=== PATIENT | female | born 1950 | race Caucasian/White ===

== ENCOUNTER 2022-11-04 11:04 | Emergency (ER) | payer MEDICARE, OTHER ==
--- NOTE | 2022-11-04 11:26 | ERPHSYRPT ---
- History of Present Illness Time Seen by Provider: 11/04/22 11:26 Source: patient Exam Limitations: no limitations Physician History: This is a 72-year-old white female patient who is diabetic, has hypertension and hypothyroidism who presents with left hand pain digits 4 and 5, left foot and ankle pain after jumping off the back of a stationary truck while trying to get her coat into the truck bed. Patient was able to ambulate on her feet to get the go to the [employer] worker. The left foot and ankle pain had increased pain and swelling and therefore she wanted to come into obtain an x-ray. When she hit the ground her left foot and ankle rolled and she tried to balance herself to protect her left hip with her left hand and that is how she injured the left hand digits 4 and 5. She has no headache. She has no neck pain. She has no other sites of injury or pain. Occurred: this morning Reason for Fall: fell from height Injuries/Pain Location: upper extremity, lower extremity (Left hand left foot and ankle) Loss of Consciousness: no loss of consciousness Quality: aching Severity of Pain-Max: mild Severity of Pain-Current: mild Modifying Factors: Improves With: movement Associated Symptoms (Fall): denies symptoms Allergies/Adverse Reactions: fentanyl [From Duragesic] Allergy (Verified 11/04/22 11:40) influenza virus vaccine qs [id number] (36 mos, up) [From Fluarix Quad] Allergy (Verified 11/04/22 11:40) Home Medications: Atorvastatin Calcium 10 mg PO DAILY 11/04/22 [History] Ergocalciferol (Vitamin D2) [Vitamin D2] 50,000 unit PO WEEKLY 11/04/22 [History] Levothyroxine Sodium 100 mcg PO DAILY 11/04/22 [History] Lisinopril 20 mg [Zestril 20 MG] 20 mg PO DAILY 11/04/22 [History] Tirzepatide [Mounjaro] 5 mg SQ WEEKLY 11/04/22 [History] Travel Risk - International Travel Have you traveled outside of the country in past 3 weeks: No - Coronavirus Screening Are you exhibiting any of the following symptoms?: No Close contact with a COVID-19 positive Pt in past 14-21 Days: No - Review of Systems Constitutional: No Symptoms Eyes: No Symptoms Ears, Nose, & Throat: No Symptoms Respiratory: No Symptoms Cardiac: No Symptoms Abdominal/Gastrointestinal: No Symptoms Genitourinary Symptoms: No Symptoms Musculoskeletal: Injury (Left hand digits 4 and 5, left foot and ankle) Skin: No Symptoms Neurological: No Symptoms Psychological: No Symptoms Endocrine: No Symptoms Hematologic/Lymphatic: No Symptoms Immunological/Allergic: No Symptoms All Other Systems: Reviewed and Negative - Past Medical History Pertinent Past Medical History: Yes - Past Surgical History Past Surgical History: Yes - Nursing Vital Signs Nursing Vital Signs: Initial Vital Signs Temperature 98.3 F 11/04/22 11:27 Pulse Rate 84 11/04/22 11:27 Blood Pressure 134/89 11/04/22 11:27 O2 Sat by Pulse Oximetry 95 11/04/22 11:27 Pain Scale Pain Intensity 8 - Wolf Coma Score Best Eye Response (Wolcott): (4) open spontaneously Best Verbal Response (Wolf): (5) oriented Best Motor Response (Wolcott): (6) obeys commands [place]cott Total: 15 - Physical Exam General Appearance: no apparent distress, alert, anxiety Head Injury: no evidence of injury Eye Exam: PERRL/EOMI, eyes nml inspection ENT Exam: airway nml, nml ext.inspection, No evidence of ENT injury Neck Exam: supple, trachea midline, full range of motion, normal alignment, normal inspection Respiratory/Chest Exam: No chest tenderness, No respiratory distress, No ecchymosis, No crepitus Gastrointestinal Exam: No tenderness Rectal Exam: not done Back Exam: normal inspection, normal range of motion, No CVA tenderness, No vertebral tenderness Extremity Exam: normal range of motion, weight bearing (Hurts to bear weight but can do so), swelling (Left hand digits 4 and 5, left foot and ankle), tenderness (Left hand digits 4 and 5, left foot and ankle) Neurologic Exam: alert, oriented x 3, cooperative, hooker off II-XII nml as tested, normal mood/affect, nml cerebellar function, nml station & gait, sensation nml Skin Exam: normal color, warm, dry SpO2 Interpretation: normal O2 Delivery: Room Air - Course Nursing assessment & vital signs reviewed: Yes Ordered Tests: Active Orders 24 hr Category Date Time Status Splint STAT Care 11/04/22 12:28 Ordered ANKLE (3 VIEWS) Stat Exams 11/04/22 11:46 Completed FOOT (MINIMUM 3 VIEWS) Stat Exams 11/04/22 11:46 Completed HAND (MINIMUM 3 VIEWS) Stat Exams 11/04/22 11:46 Completed - Progress Progress: unchanged Progress Note: 11/04/22 11:57 This patient's medical issue is 1 of low complexity. Level complexity in the work-up performed is based on review of the patient's past medical history, review of the patient's medication list, review of the patient's drug allergy list, history of present illness and physical findings on examination. The work-up in this patient does not require laboratory studies. However, we will x-ray the left hand as well as the left foot and left ankle. 11/04/22 12:29 I reviewed the interpretation/impression of the radiologist for the 3 x-rays of performed. Left hand x-ray is negative for any acute fracture or dislocation. Left foot x-ray shows a nondisplaced hairline fracture of the lateral malleolus with adjacent soft tissue swelling. Left ankle shows nondisplaced hairline lateral malleolus fracture with adjacent soft tissue swelling. Counseled pt/family regarding: diagnosis, need for follow-up, rad results Medical Desision Making - Diagnostic Testing Diagnostic test were ordered, analyzed, and reviewed by me: Yes Radiological Interpretation: Reviewed by me, Teleradiologist Report - Risk of complications The pt has a mod risk of morbidity or mortality based on: Need for prescription drug management - Departure Departure Disposition: Home Clinical Impression: Fracture of left malleolus Condition: Stable Critical Care Time: No Referrals: YOUNG RICHARD [Primary Care Provider] - Follow up/PCP as directed Additional Instructions: Wear walking boot. Follow-up with [facility] orthopedic clinic Wednesday through Wednesday 8 AM to 10 AM for further evaluation management. It is a walk-in clinic and you do not need an appointment. Other options include following up with Dr. Meza, our podiatric specialist. Call the number provided to make arrangements for follow-up appointment for further evaluation and management. The final option is to use your own orthopedic or podiatric specialist. If there are no contraindications use ibuprofen 600 mg orally 3 times a day with food for 5 days. Prescriptions: Oxycodone HCl/Acetaminophen [Percocet 5-325 mg Tablet] 1 each PO Q8H PRN PRN #6 tablet MDD 3 PRN Reason: Moderate To Severe Pain
[2022-11-04 11:39] VITALS: PULSE 84; TEMP 98.3
[2022-11-04 12:12] VITALS: BP 139/111; O2SAT 92
--- NOTE | 2022-11-04 12:15 | XRAY ---
Indication: Pain following fall. Comparison: None 3 view left hand demonstrates osteopenia, minimal/mild degenerative changes all IP joints, and radiocarpal joint space narrowing. No other bony, articular, or soft tissue abnormalities.
--- NOTE | 2022-11-04 12:17 | XRAY ---
Indication: Pain following fall. Comparison: None 3 view left ankle demonstrates nondisplaced hairline fracture lateral malleolus with adjacent soft tissue swelling. Elsewhere osteopenia, tiny medial malleolus heterotopic ossification, and small heel spurs. No other bony, articular, or soft tissue abnormalities.
--- NOTE | 2022-11-04 12:19 | XRAY ---
Indication: Pain following fall. Comparison: None 3 nonweightbearing views left foot demonstrates nondisplaced hairline fracture lateral malleolus with adjacent soft tissue swelling. Elsewhere osteopenia, small heel spurs, and tiny navicular/cuboid accessory ossicles. No other bony, articular, or soft tissue abnormalities.
== END 2022-11-04 12:54 | disposition home or self-care (01) ==
LOC: ED 11:04
DX: S82.65XA Nondisplaced fracture of lateral malleolus of left fibula, initial encounter for closed fracture (principal); X50.0XXA Overexertion from strenuous movement or load, initial encounter; Y93.K9 Activity, other involving animal care; M79.645 Pain in left finger(s); E11.9 Type 2 diabetes mellitus without complications; I10 Essential (primary) hypertension; Z79.85 Long-term (current) use of injectable non-insulin antidiabetic drugs; Z79.891 Long term (current) use of opiate analgesic; Z79.899 Other long term (current) drug therapy
CPT/HCPCS: 73130; 73610; 73630; 99283; L4386